=== PATIENT | female | born 1940 | race Caucasian/White ===

== ENCOUNTER 2017-01-03 06:05 | Inpatient (IN) | payer MEDICARE, OTHER ==
--- NOTE | ~2017-01-03 | CT18 ---
[facility] A Service of [facility] & [facility] RADIOLOGY TEXT RESULTS PATIENT: TORY GUARDADO LOCATION: C2A : 40 UNIT #: [id number] AGE: [address]: Lyudmila Arthur MD SEX: F ORDER DR: [id number] [facility] [address] [place], [place] [address] [id number] I MR#: [id number] #: [id number] NAME: TORY GUARDADO. : 1940 SEX: F STUDY DATE/TIME: 01/03/2017 6:09 UNIT: C2A ROOM: [facility] STUDY DESCRIPTION: CT Angio Head Stroke Attending Physician: González Alvarado M.D. Ordering Physician: Fito Mitchell M.D. Primary Care Physician: Isael Blunt M.D. MEDICAL IMAGING REPORT This report is preliminary unless electronic signature is present EXAM Head and neck CT angiogram 01/03/2017 at 6:[address] 01/03/2017 PROCEDURE Axial contrast-enhanced head and neck CT angiogram with three-dimensional reformats. This CT exam was performed with one or more of the following radiation dose reduction techniques: Automatic exposure control, adjustment of mA and/or kV according to patient size, and iterative reconstruction. CLINICAL HISTORY Unresponsive this morning. FINDINGS There is a normal arch branching pattern with mild narrowing at the left common carotid origin. The right vertebral is diminutive but patent. The left vertebral is dominant and patent throughout the neck. There is some plaque in both vertebrals at or about the dural penetration but both vessels supply the basilar artery. There are -type posterior cerebral origins bilaterally, and the anterior communicator appears patent. In the neck, there is plaque at both cervical carotid bifurcations. There is 0% left ICA stenosis by NASCET criteria. At the right carotid bifurcation, there is about 50% ICA stenosis by NASCET criteria. The upper cervical ICAs are patent bilaterally. Intracranially, there is nonstenotic plaque in the carotid siphons. There is an early right ICA bifurcation, and thrombus at the bifurcation of the M1 occludes the superior division branch. There is markedly diminished vascularity in that territory with what appears to be gyral swelling and a STS. [facility] A Service of [facility] & [facility] RADIOLOGY TEXT RESULTS PATIENT: TORY GUARDADO LOCATION: [facility] 217-01 : 40 UNIT #: [id number] AGE: [address]: Lyudmila Arthur MD SEX: F ORDER DR: completed infarct, as seen on the CT examination. This is superimposed on a background of chronic small vessel change. No evidence of vascular malformation is seen. There is no other intraluminal flow-limiting stenosis and no evidence of aneurysm. The cervical soft tissues are unremarkable. The lung apices show no acute disease. There is spinal degenerative change and the patient is edentulous but there is no acute bony abnormality, though the left mastoids are under pneumatized. IMPRESSION 1. Abrupt occlusion of the superior division branch and an early right MCA bifurcation by thrombus with markedly diminished flow in the distal right superior division territory and what appears to be completed extensive infarct with gyral swelling, loss of davis-white differentiation and sulcal effacement. Minimal, if any leftward midline shift is seen. 2. Thrombus probably narrows the right inferior division origin at that bifurcation but without critical stenosis. 3. No other intracranial aneurysm or flow-limiting stenosis is seen. 4. There is 50% right ICA stenosis by NASCET criteria due to plaque at the carotid bifurcation. The left carotid bifurcation demonstrates plaque but 0% stenosis by NASCET criteria. Dictated by... Erik Caceres M.D. THIS IS AN ELECTRONICALLY VERIFIED REPORT Erik Caceres M.D. at 01/05/2017 3:59 PM TEV/psc TD: 01/03/2017 21:43 JOB #: [id number] MEDICAL IMAGING REPORT Page 1 of 1 COPY
--- NOTE | ~2017-01-03 | EKG ---
PATIENT: TORY GUARDADO UNIT #: [id number] Ventricular Rate: 76 BPM Atrial Rate: 76 BPM P-R Interval: 162 ms QRS Duration: 92 ms Q-T Interval: 400 ms QTC Calculation(Bezet): 450 ms P [place]: 77 degrees Calculated R [place]: 68 degrees Calculated T [place]: 121 degrees Diagnosis Line: Sinus rhythm with frequent Premature ventricular Diagnosis Line: complexes Diagnosis Line: Possible Left atrial enlargement Diagnosis Line: Nonspecific ST and T wave abnormality Diagnosis Line: Abnormal ECG Diagnosis Line: When compared with ECG of 07-MAR-2016 06:44, Diagnosis Line: Nonspecific T wave abnormality now evident in Diagnosis Line: Inferior leads Diagnosis Line: Confirmed by ANNA GARCIA, ANCA ([id number]) on Diagnosis Line: 01/03/2017 3:57:56 PM INTERPRETING MD: ILANA
--- NOTE | ~2017-01-03 | HP ---
Unit #: [id number] #: [id number] Patient: TORY GUARDADO [id number] [address] [place], [place] [address] [id number] I MR#: [id number] NAME: TORY GUARDADO. ROOM: 217 Age: 76 Sex: F Admission Date: 01/03/2017 : 1940 Attending Physician: González Alvarado M.D. Primary Care Physician: Isael Blunt M.D. HISTORY AND PHYSICAL CHIEF COMPLAINT Altered mental status, CVA. HISTORY OF PRESENT ILLNESS The patient is a pleasant 76-year-old female who was recently discharged from [facility] on 01/01/2017 after she was admitted on 12/29/2016 for stroke-like symptoms. She was discharged to the rehab facility and subsequently was found sort of unresponsive this morning and brought down to the ER for evaluation. Here in the ER, CT scan was done which showed evidence of large right middle cerebral artery infarct with left hemiparesis. Dr. Murphy was consulted and he did evaluate the patient in the ER and findings were consistent with a catastrophic stroke with terminal prognosis. She does have a history of coronary artery disease, diabetes mellitus as well as hypertension. REVIEW OF SYSTEMS Unobtainable. PAST MEDICAL HISTORY 1. Coronary artery disease. 2. Hypertension. 3. Diabetes. 4. Hyperlipidemia. 5. History of breast cancer. 6. History of DVT. 7. competence. 8. Myocardial infarction. 9. History of syncope in the past. PAST SURGICAL HISTORY 1. Right carpal tunnel release. 2. Bilateral tubal ligation. 3. Cataract extraction in the past. 4. Coronary angioplasty in 1995. 5. Coronary artery bypass graft. 6. Eye surgery. 7. Radical mastectomy of the left breast in 2007. HOME MEDICATIONS 1. Low-dose aspirin. 2. Lipitor 80 mg p.o. daily. 3. Vitamin D3 5000 units p.o. daily. 4. Plavix 75 mg p.o. daily. 5. Imdur ER 50 mg p.o. daily. Unit #: [id number] #: [id number] Patient: TORY GUARDADO 6. Glucophage 500 mg p.o. daily. 7. Prinivil 20 mg p.o. daily. 8. Lasix 20 mg p.o. b.i.d. 9. Potassium chloride 20 mEq p.o. b.i.d. 10. Aricept 5 mg p.o. h.s. 11. Nitroglycerin 0.4 mg sublingual as needed for chest pain. 12. Ventolin two puffs inhalation q.6 h. 13. Nystatin. 14. NovoLog 70/30. ALLERGIES 1. Dextromethorphan. 2. Promethazine. SOCIAL HISTORY Patient lives intermittently with her children. Recently was at [facility]. She quit smoking 34 years ago. No history of alcohol use. FAMILY HISTORY Significant for dementia, intracranial aneurysm, hyperlipidemia, hypertension, heart failure. PHYSICAL EXAMINATION VITAL SIGNS: Blood pressure 175/84, pulse 56, respiratory rate 19, temperature 97.2. GENERAL: Patient who is acutely ill looking. LUNGS: She had grunting respiratory rate efforts. Reduced breath sounds along the bases posteriorly with transmitted sounds. HEART: First and second heart sounds. NEUROLOGIC: The patient is not alert, unable to fully assess at this time secondary to patient's sensorium. LYMPHATICS: No enlarged peripheral lymphadenopathy that I could appreciate. SKIN: Warm and dry with no rash. DIAGNOSTIC STUDIES LABORATORY: Chemistry glucose 240, BUN 22, creatinine 1.0, sodium 137, potassium 4.6, chloride 105, bicarbonate 24, calcium 10.5. CBC with WBC 10.4, hemoglobin 14.1, hematocrit 43.0, platelet count 113. IMAGING: CT scan findings as noted. ASSESSMENT AND PLAN 1. Catastrophic cerebrovascular accident/massive cerebrovascular accident, end-stage. Prognosis is very poor. 2. Hyperlipidemia. 3. Diabetes mellitus type 2. We will refrain from checking Accu-Cheks at this time for comfort. GOALS OF CARE I have discussed with multiple family members today, multiple children who are present today with grandchildren. The patient has no designated POA and does not have a living will. Consensus per family is that she be made a DO NOT RESUSCITATE and comfort measures only. I will institute this and admit her to the hospital. I will get a hospice consult. PROGNOSIS Hours to days to live. Unit #: [id number] #: [id number] Patient: TORY GUARDADO Dictated by Isac Vasquez TD: 01/03/2017 15:33 JOB #: [id number] HISTORY AND PHYSICAL Page 1 of 1 X González Alvarado MD HISTORY AND PHYSICAL
--- NOTE | ~2017-01-03 | DS ---
Unit #: [id number] #: [id number] Patient: TORY GUARDADO [id number] [address] [place], [place] [address] [id number] I MR#: [id number] NAME: TORY GUARDADO. ROOM: 217 Age: 76 Sex: F Admission Date: 01/03/2017 : 1940 Discharge Date: 01/04/2017 Attending Physician: Lyudmila Arthur M.D. Primary Care Physician: Isael Blunt M.D. DISCHARGE SUMMARY PRINCIPAL DIAGNOSES 1. Large right MCA thrombotic stroke with subsequent left hemiparesis. 2. Diabetes mellitus type 2, insulin requiring. 3. Coronary artery disease. 4. Hypotension. 5. Hyperlipidemia. 6. History of breast cancer. 7. History of DVT. 8. Vascular dementia. CONSULTANTS Dr. Murphy, neurology. DIAGNOSTIC DATA IMAGING: CT of the head without contrast on 01/03/2017 with a large acute infarction of the right MCA distribution. No evidence of hemorrhagic transformation. Mild generalized atrophy and chronic small vessel disease noted. CTA of the head and neck on 01/03/2017 with occlusion of the superior division branch and right MCA bifurcation by thrombus with diminished flow in the distal right superior division. There is infarct with associated gyral swelling, loss of davis/white differentiation and focal effacement. Minimal left midline shift. Thrombus narrows the right inferior division origin without critical stenosis. There is a 50% right ICA stenosis per NASCET criteria. Left carotid bifurcation with 0% stenosis. CLINICAL HISTORY/HOSPITAL COURSE Ms. Guardado is a 76-year-old female who was sent from the rehab facility with the abrupt onset of altered mental status. In the emergency department the patient underwent a CT scan of the head which revealed a large right MCA distribution stroke. CTA of the head and neck was also done. The patient was subsequently admitted. Extensive thrombus was discussed with the family, both by the admitting physician and Dr. Murphy. At this time the family is opting for comfort measures only. The patient remained stable overnight, but has begun having apneic spells per the family. The patient is scheduled to be seen by Hospice this morning and will transfer to inpatient Hospice if the family so desires. DISCHARGE CONDITION Dying. Unit #: [id number] #: [id number] Patient: TORY GUARDADO DISCHARGE DISPOSITION Discharge to inpatient Hospice. DISCHARGE MEDICATIONS 1. Ativan 1 mg IV q.1 h. p.r.n. anxiety. 2. Morphine 2 mg IV q.1 h. p.r.n. pain. DISCHARGE INSTRUCTIONS Comfort only. Dictated by... Lyudmila Arthur M.D. BRIAN/esteban TD: 01/04/2017 08:58 JOB #: [id number] DISCHARGE SUMMARY Page 1 of 1 X Lyudmila Arthur MD X DISCHARGE SUMMARY
--- NOTE | ~2017-01-03 | CT72 ---
[facility] A Service of [facility] & [facility] RADIOLOGY TEXT RESULTS PATIENT: TORY GUARDADO LOCATION: [facility] : 40 UNIT #: [id number] AGE: [address]: Lyudmila Arthur MD SEX: F ORDER DR: [id number] [facility] [address]. [place], [place] [address] [id number] I MR#: [id number] Acc #: [id number] NAME: TORY GUARDADO. : 1940 SEX: F STUDY DATE/TIME: 01/03/2017 5:52 UNIT: C2 ROOM: [facility] STUDY DESCRIPTION: CT Head Wo Contrast Stroke Attending Physician: González Alvarado M.D. Ordering Physician: Georges Azevedo M.D. Primary Care Physician: Isael Blunt M.D. MEDICAL IMAGING REPORT This report is preliminary unless electronic signature is present EXAM CT head without contrast 01/03/2017 HISTORY 76-year-old female with acute mental status change this morning. Patient unresponsive. History of prior CVA. COMPARISON CT head and brain MRI 03/06/2016 TECHNIQUE Routine unenhanced axial images performed through the brain. This CT exam was performed with one or more of the following radiation dose reduction techniques: Automatic exposure control, adjustment of mA and/or kV according to patient size, and iterative reconstruction. FINDINGS There is loss of davis-white differentiation throughout the right middle cerebral artery distribution with developing effacement of the sulci. Findings are consistent with acute infarction. No evidence of acute hemorrhage, mass lesion, or abnormal extraaxial fluid collection. No midline shift. Ventricular system is normal in size and configuration. Mild generalized atrophy. There is mild chronic small vessel disease noted in the supratentorial white matter. Remote lacunar infarcts in the left basal ganglia. No acute bony abnormality. Visualized paranasal sinuses are clear. There is chronic-appearing partial fluid opacification of the left sided mastoid air cells. Right mastoid air cells are clear. IMPRESSION 1. Large acute infarction in the right MCA distribution. No evidence of hemorrhagic transformation. 2. Mild generalized atrophy with chronic small vessel disease and remote lacunar infarcts in the left basal ganglia. [facility] A Service of [facility] & [facility] RADIOLOGY TEXT RESULTS PATIENT: TORY GUARDADO LOCATION: [facility] 217-01 : 40 UNIT #: [id number] AGE: [address]: Lyudmila Arthur MD SEX: F ORDER DR: 3. Chronic-appearing partial fluid opacification of the left sided mastoid air cells. Critical findings discussed with Dr. Azevedo at the time of dictation. Dictated by... Isael Hendrix M.D. THIS IS AN ELECTRONICALLY VERIFIED REPORT Isael Hendrix M.D. at 01/04/2017 8:38 AM DIONTE/chari TD: 01/03/2017 19:42 JOB #: [id number] MEDICAL IMAGING REPORT Page 1 of 1 COPY
--- NOTE | ~2017-01-03 | CT24 ---
[facility] A Service of [facility] RADIOLOGY TEXT RESULTS PATIENT: TORY GUARDADO LOCATION: [facility] : 40 UNIT #: [id number] AGE: [address]: Lyudmila Arthur MD SEX: F ORDER DR: [id number] [facility] [address]. [place], [place] [address] [id number] I MR#: [id number] Acc #: [id number] NAME: TORY GUARDADO : 1940 SEX: F STUDY DATE/TIME: 01/03/2017 6:09 UNIT: [facility] ROOM: [facility] STUDY DESCRIPTION: CT Angio Neck Stroke Attending Physician: González Alvarado M.D. Ordering Physician: Georges Azevedo M.D. Primary Care Physician: Isael Blunt M.D. MEDICAL IMAGING REPORT This report is preliminary unless electronic signature is present EXAM CT angio neck stroke HISTORY Unresponsive this morning. FINDINGS Please see CT ANGIO HEAD STROKE report for combined text results. Dictated by... Erik Caceres M.D. THIS IS AN ELECTRONICALLY VERIFIED REPORT Erik Caceres M.D. at 01/05/2017 3:58 PM TOM/chari TD: 01/03/2017 21:55 JOB #: [id number] MEDICAL IMAGING REPORT Page 1 of 1 COPY
[~2017-01-03 06:05] MED LIST: ACCUPRIL PO; ACETAMINOPHEN650 M3 PO; ACTOS; ALBUTEROL17 GM INH; ALPRAZOLAM; ALPRAZOLAM PO; ANASTROZOLE1 MG PO; ARIMIDEX1 MG PO; ASPIRIN; ASPIRIN81 M2 PO; ASPIRINEC PO; ATORVASTATIN CA80 MG PO; BAYER ASPIRIN325 M1 PO; CARDIZEM; CARDIZEM CD180 M2 PO; CHEWABLE ASPIRI81 MG PO; CLOPIDOGREL75 MG PO; DILTIAZEM 24HR120 M1 PO; DILTIAZEM 24HR180 M1 PO; DILTIAZEM PO; FLEXERIL10 MG PO; HUMALOG MIX 75/10 ML; HUMALOG MIX 75/10 ML PO; IMDUR-ER60 MG PO; INSULIN; K-DUR20 ME1 PO; KCL PO; KEFLEX500 M1 PO; LASIX PO; LASIX20 MG PO; LIPITOR; LIPITOR PO; LIPITOR20 MG PO; LIPITOR80 MG PO; LITE COAT ASPI325 M1 PO; LITE COAT ASPI325 M2 PO; LOPRESSOR; LOPRESSOR PO; MAGNESIUM400 M1 PO; METFORMIN; METFORMIN HCL500 M1 PO; METFORMIN HCL500 M2 PO; METFORMIN HCL500 M3 PO; METFORMIN PO; METOPROLOL TAR100 MG PO; METOPROLOL TART25 MG PO; MULTIVITAMIN1 UDCAP PO; NITROSTAT0.4 MG SL; NORVASC PO; NOVOLOG MI100 UNIT/1 SUBQ; NOVOLOG7030 SUBQ; PATIENT'S PHARMACY; PLAVIX; PLAVIX PO; QUINAPRIL HCL20 M1 PO; QUINAPRIL HCL20 MG PO; XANAX0.5 M1 PO
[2017-01-03 06:24] LABS: BASOPHIL# 0.1 X10e3 (0-0.3); BASOPHIL% 0.9 % (0-2.5); EOSINOPHIL# 0.2 X10e3 (0-0.7); EOSINOPHIL% 1.9 % (0.0-7.0); HEMOGLOBIN 14.1 gm/dL (12.0-16.0); LYMPHOCYTE# 2.6 X10e3 (1.0-3.5); MEAN CELL VOLUME 81.9 FL (83-96); MEAN CORPUSCULAR HEMOGLOBIN 26.9 PG (28-34); MEAN CORPUSCULAR HGB CONC 32.8 g/dL (30-36); MONOCYTE# 0.5 X10e3 (0-1.0); MONOCYTE% 5.2 % (3.0-12.0); PLATELET COUNT 111 X10e3 (140-420); RED BLOOD COUNT 5.25 X10e (3.90-5.30); RED CELL DISTRIBUTION WIDTH 14.2 % (11.0-15.5); WHITE BLOOD COUNT 10.4 X10e3 (4.0-10.5)
[2017-01-03 06:25] LABS: DIFF IND NO
[2017-01-03 06:39] LABS: PARTIAL THROMBOPLASTIN TIME 23.2 SECONDS (23.5-31.3); PROTHROMBIN TIME (PATIENT) 10.4 SECONDS (9.6-11.5)
[2017-01-03 06:41] LABS: POC - CREATININE 0.83 mg/dL (0.44-1.03); POC - GFR >60.0 mL/min (>60)
[2017-01-03 06:50] LABS: ALBUMIN SERUM 3.7 g/dL (3.5-5.0); BILIRUBIN, DIRECT 0.2 mg/dL (0.0-0.2); BILIRUBIN,INDIRECT 0.8 mg/dL (0.0-0.9); CALCIUM SERUM 10.5 mg/dL (8.4-10.2); GLOM FILT RATE Estimated 54.7 mL/min (>60); POTASSIUM 4.6 mmol/L (3.5-5.1); PROTEIN TOTAL SERUM 7.3 g/dL (6.0-8.3)
[2017-01-03 07:12] LABS: POC - CKMB 5.3 ng/mL (0.0-7.9); POC - TROPONIN <0.05 ng/mL (<=0.05)
[2017-01-03] MEDS ORDERED: LO-DOSE ASPIRIN81 M1 PO (08:09)
[2017-01-03] MEDS ORDERED: LIPITOR80 MG PO (08:09)
[2017-01-03] MEDS ORDERED: VITAMIN D35000 UNI1 PO (08:10)
[2017-01-03] MEDS ORDERED: IMDUR-ER30 M1 PO (08:10)
[2017-01-03] MEDS ORDERED: CLOPIDOGREL75 MG PO (08:10)
[2017-01-03] MEDS ORDERED: GLUCOPHAGE500 MG PO (08:11)
[2017-01-03] MEDS ORDERED: PRINIVIL20 M1 PO (08:11)
[2017-01-03] MEDS ORDERED: LASIX20 MG PO (08:12)
[2017-01-03] MEDS ORDERED: POTASSIUM CHLO10 ME1 PO (08:13)
[2017-01-03] MEDS ORDERED: ARICEPT5 MG PO (08:13)
[2017-01-03] MEDS ORDERED: NITROGLYCERIN0.4 MG SL (08:15)
[2017-01-03] MEDS ORDERED: ALBUTEROL17 GM INH (08:15)
[2017-01-03] MEDS ORDERED: NYSTATIN1 EAC1 TOP (08:18)
[2017-01-03] MEDS ORDERED: NOVOLOG7030 SUBQ (08:19)
[2017-01-03 08:59] LABS: POC - CKMB 1.2 ng/mL (0.0-7.9); POC - TROPONIN <0.05 ng/mL (<=0.05)
== END 2017-01-04 15:53 | DRG 65 ==
LOC: CED 06:05 → CEDOF 08:55 → C2A 12:46
PROVIDERS: Emergency Medicine
DX: I63.311 Cerebral infarction due to thrombosis of right middle cerebral artery (principal); G81.94 Hemiplegia, unspecified affecting left nondominant side; I95.9 Hypotension, unspecified; E11.9 Type 2 diabetes mellitus without complications; F01.50 Vascular dementia, unspecified severity, without behavioral disturbance, psychotic disturbance, mood disturbance, and anxiety; R47.01 Aphasia; R29.726 NIHSS score 26; I25.10 Atherosclerotic heart disease of native coronary artery without angina pectoris; E78.5 Hyperlipidemia, unspecified; Z66 Do not resuscitate; Z51.5 Encounter for palliative care; Z85.3 Personal history of malignant neoplasm of breast; Z86.718 Personal history of other venous thrombosis and embolism; Z87.891 Personal history of nicotine dependence; Z79.02 Long term (current) use of antithrombotics/antiplatelets; Z79.82 Long term (current) use of aspirin; Z79.84 Long term (current) use of oral hypoglycemic drugs; Z79.4 Long term (current) use of insulin; Z79.899 Other long term (current) drug therapy
CPT/HCPCS: 36415; 51702; 70450; 70496; 70498; 80048; 80076; 82553; 82565; 82947; 84484; 85025; 85610; 85730; 93005; 94760; 99291; J2060; J2270; Q9967